=== PATIENT | female | born 1960 | race Caucasian/White ===

== ENCOUNTER 2020-04-08 07:15 | Outpatient (CLI) | payer OTHER, SELFPAY ==
--- NOTE | ~2020-04-08 | US_ITS ---
US abdomen complete EXAMINATION: US Abdomen Complete INDICATION: Abdomen pain PROCEDURE: Realtime High Resolution abdomen ultrasound. COMPARISON: IVP dated 08/24/2006 FINDINGS: Gallbladder within normal limits. No gallstones, pericholecystic fluid, gallbladder wall t hickening or biliary dilatation. Common bile duct measures 3.5 mm. Liver echotexture within normal limits without focal mass. Pancreas within normal limits. Pancreati c tail is obscured by bowel gas. Spleen is unremarkeable. Renal echotexture is within normal limits bilaterally without hydronephrosis, contour deforming mass or renal stone. Right kidney measures 10.6 cm. Left kidney measures 9.9 cm. Visualized aspects of the aorta and IVC are within normal limits. Portal vein is patent. No sonograph ic Garcia's sign indicated by the technologist. IMPRESSION: 1: Normal abdominal ultrasound. Reviewed, dictated and finalized at location A.
== END 2020-04-08 07:16 | disposition home or self-care (01) ==
PROVIDERS: PCP Internal Medicine; Visit Provider Internal Medicine
DX: R10.9 Unspecified abdominal pain (principal)
CPT/HCPCS: 76700

== ENCOUNTER → 2020-11-05 08:43 | Outpatient (CLI) | payer OTHER, SELFPAY ==
[2020-11-05 18:27] LABS: SARS-CoV-2 RNA PCR Negative
== END ==
PROVIDERS: PCP Internal Medicine; Visit Provider Internal Medicine
DX: Z20.822 Contact with and (suspected) exposure to COVID-19 (principal); R09.89 Other specified symptoms and signs involving the circulatory and respiratory systems
CPT/HCPCS: C9803; U0003; U0005

== ENCOUNTER 2022-11-28 08:07 | Observation (INO) | payer OTHER, SELFPAY ==
[2022-11-28] VITALS (17 sets, daily range): BP systolic 133–196; BP diastolic 59–112; PULSE 62–75; RESP 14–24; TEMP 36.2; O2SAT 94–100; BMI 35.2
--- NOTE | 2022-11-28 | ECHO_ITS ---
Patient Info Name: Amaya Rodriguez Age: 62 years : 1960 Gender: Female Ht: 66 in Wt: 218 lbs BSA: 2.19 m2 HR: 97 bpm BP: 133 / 80 mmHg Heart Rhythm: Sinus Rhythm Technical Quality: Fair Exam Date: 11/28/2022 1:50 PM Exam Location: [facility] Pulmonary Patient Status: Outpatient Admit Date: 11/28/2022 Staff Ordering Physician: Angel Stevens DO Brand Director: Delmi Diaz RDCS Attending Provider: Guanaco Yañez MD Referring Physician: Rodney WELLS; Exam Type: CA echo doppler color flow Study Info Indications R07.9 - Chest pain, unspecified Complete two-dimensional, color flow and Doppler transthoracic echocardiogram is performed. Summary 1. Complete two-dimensional, color flow and Doppler transthoracic echocardiogram is performed. 2. Left ventricular chamber dimension is normal. 3. Left ventricular systolic function is normal, estimated at 60-65%. 4. There is mildly increased left ventricular wall thickness. 5. The left ventricular diastolic function is grade I diastolic dysfunction. 6. E/e' 21 is elevated. 7. Left atrial chamber dimension is moderately enlarged. 8. There is mild aortic valve sclerosis. 9. The mitral valve has moderately calcified annulus. 10. There is trace tricuspid valve regurgitation. 11. No pulmonary hypertension, estimated pulmonary arterial systolic pressure is 26 mmHg. Left Ventricle E/e' 21 is elevated. Left ventricular chamber dimension is normal. Left ventricular systolic function is normal, estimated at 60-65%. There is mildly increased left ventricular wall thickness. The left ventricular diastolic function is grade I diastolic dysfunction. Right Ventricle Right ventricular systolic function is normal and with normal TAPSE 2.5 cm. Right ventricular chamber dimension is normal. Left Atria Left atrial chamber dimension is moderately enlarged. Right Atria Right atrial chamber dimension is normal. Aortic Valve The aortic valve is trileaflet. There is mild aortic valve sclerosis. There is no aortic valve stenosis. There is no aortic valve regurgitation. Pulmonic Valve There is no pulmonic regurgitation. Mitral Valve The mitral valve has moderately calcified annulus. There is no mitral valve stenosis. There is no mitral valve regurgitation. Tricuspid Valve There is trace tricuspid valve regurgitation. No pulmonary hypertension, estimated pulmonary arterial systolic pressure is 26 mmHg. Pericardium/Pleural There is no pericardial effusion. Inferior Vena Cava Normal inferior vena cava with >50% collapse upon inspiration consistent with normal right atrial pressure, 5 mmHg. Aorta The aortic root size at the sinus of Valsalva is normal. Left Ventricular Outflow Tract Name Value Normal LVOT 2D LVOT Diameter 2.0 cm LVOT Doppler LVOT Peak Gradient 5 mmHg LVOT Mean Gradient 3 mmHg LVOT VTI 27 cm LVOT VTI/AV VTI Ratio 0.7 LVOT Stroke Volume 84 ml LVOT CO
--- NOTE | ~2022-11-28 | XR_ITS ---
EXAMINATION: XR chest 2V DATE: 11/28/2022 08:45 INDICATION: Chest pain. TECHNIQUE: Frontal and lateral views of the chest were obtained. COMPARISON: None. FINDINGS: There is mild atelectasis in the lower lung zones. No pleural effusion or pneumothorax. The heart size is normal. IMPRESSION: 1. Mild atelectasis in the lower lung zones. Reviewed, dictated and finalized at location A. [facility]
--- NOTE | 2022-11-28 08:25 | ED.GENADULT ---
HPI - General Adult General Chief complaint: Chest Pain Stated complaint: CHEST PAIN Time Seen by Provider: 11/28/22 08:23 History of Present Illness HPI narrative: 62-year-old female with history of hypertension, high cholesterol and hyperglycemia presenting the emergency department for evaluation of chest pain. Patient states yesterday from 5 AM until 5 PM she had a substernal chest pain that radiated to her back. Patient states that nothing seems to make the pain better or worse. Patient states the pain was constant for the 12 hours yesterday. Patient reports after getting home from work that the pain resolved. Patient initially thought that the pain may have just been back pain due to her job of standing all day. When patient woke up this morning she had no additional pain but during the course of her morning after arriving to work she had onset of a chest pressure chest tightness. Patient states this is different than the pain she was having yesterday. Patient discussed this with her son-in-law and he advised her to present to the emergency department for evaluation. Reviewed with her medications for her high cholesterol. Patient states that she was attempting to do a stress test at [facility] on Thursday but was unable to complete the test. She has not had any additional testing rescheduled. Related Data Home Medications Medication Instructions Recorded Confirmed atorvastatin 20 mg tablet (Lipitor) 20 mg PO DAILY 11/28/22 11/28/22 loperamide 2 mg capsule 2 mg PO DAILY 11/28/22 11/28/22 omeprazole 20 mg tablet,delayed 20 mg PO DAILY 11/28/22 11/28/22 release Allergies Allergy/AdvReac Type Severity Reaction Status Date / Time No Known Drug Allergies Allergy Unknown Unknown Verified 04/15/21 16:12 Review of Systems Review of Systems: All systems reviewed & are unremarkable except as noted in HPI and below PMFSH Past Medical History Medical History (Updated 11/28/22 @ 19:29 by Pastor Llanes MD) Depression with anxiety Essential (primary) hypertension Other hyperlipidemia Surgical History Surgical History (Updated 11/28/22 @ 16:32 by Amaya Barnard NP) H/O: hysterectomy History of tonsillectomy and adenoidectomy S/P ORIF (open reduction internal fixation) fracture Family History Family History Sibling Cerebrovascular accident Colon cancer Father Patient's father is Mother Colon cancer Social History Social History (Updated 11/28/22 @ 16:33 by Amaya Barnard NP) Social History: the patient is and has 1 daughter. 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 Code status full code Smoking status: Never smoker Second hand tobacco smoke exposure: No Alcohol intake: current Lack of Transportation: No Lack of Food: Never True Current Housing: I Have Housing Concerned About Future Housing: No Difficulty Paying Gas/Electric Bills: No Difficulty Paying for Meds: No Currently Unemployed: No Education: Associate Degree Difficulty w/ Childcare or Family Care: No Spiritual care concerns: No Exam Narrative: APPEARANCE: Well appearing, no pain, no distress, well-nourished. HEAD: normocephalic, atraumatic. EYES: PERRLA/EOMI, conjunctivae clear. NOSE: Normal no drainage NECK: Supple. No adenopathy, no masses. RESPIRATORY: Airway patent, respirations nonlabored. Clear to auscultation bilaterally, no rales, rhonchi, wheezing. CARDIOVASCULAR: Regular rate and rhythm without murmurs rubs or gallops. ABDOMINAL: Soft, nontender, nondistended, normal bowel sounds MUSCULOSKELETAL: Moves all extremities. Strength/ROM intact, No edema, No calf tenderness. NEURO: Alert. Cranial nerves II through XII intact. SKIN: Warm, dry. Normal Color Course Course Emergency Course: 62-year-old female presenting with persistent chest pain. Patient was treated with aspir
[2022-11-28 08:35] LABS: Basophils Absolute Auto 0.1 K/mm3 (0.0-0.1); Basophils Percent Auto 0.8 % (0.2-1.2); Eosinophils Absolute Auto 0.2 K/mm3 (0-0.3); Eosinophils Percent Auto 3.4 % (0-4.4); Hematocrit 40.7 % (37.0-47.0); Hemoglobin 13.4 g/dL (12.0-15.0); Immature Granulocyte Absolute 0.03 K/mm3 (0.00-0.031); Immature Granulocyte Percent A 0.5 % (0-0.5); Lymphocytes Absolute Auto 1.65 K/mm3 (0.9-3.2); Lymphocytes Percent Auto 27.8 % (18.3-44.2); Mean Corpuscular HGB Conc 32.9 g/dl (32-36); Mean Corpuscular Hemoglobin 30.1 pg (26-34); Mean Corpuscular Volume 91.5 fl (80-100); Mean Platelet Volume 9.7 fl (7.4-10.4); Monocytes Absolute Auto 0.5 K/mm3 (0.1-0.6); Monocytes Percent Auto 8.4 % (2.6-8.5); Neutrophils Absolute Auto 3.5 K/mm3 (1.3-6.7); Neutrophils Percent Auto 59.1 % (45.5-73.1); Platelet Count Result 340 k/mm3 (150-375); Red Blood Count 4.45 M/mm3 (4.2-5.4); Red Cell Distribution Width 12.4 % (11.5-14.5); White Blood Count 5.9 K/mm3 (4.5-10.0)
[2022-11-28] MEDS: ASPIRIN 81 MG CHEWABLE TABLET 243 MG PO (08:35)
[2022-11-28] MEDS: NITROGLYCERIN SL 0.4 MG TABLET SUBLINGUAL (08:36)
[2022-11-28 08:50] LABS: Alanine Aminotransferase 25 U/L (6-35); Albumin Level 4.3 g/dL (3.5-5.1); Alkaline Phosphatase 83 U/L (38-126); Anion Gap 7 mmol/L (8-16); Aspartate Amino Transferase 26 U/L (14-36); Bilirubin,Total 0.7 mg/dL (0.2-1.3); Blood Urea Nitrogen 18 mg/dL (7-17); Calcium 8.7 mg/dL (8.4-10.2); Carbon Dioxide 27 mmol/L (22-30); Chloride 101 mmol/L (98-107); Estimated CRCL calculation 96 ml/min; Estimated Glomerular Filt Rate > 60; Glucose 108 mg/dL (65-110); Potassium 4.4 mmol/L (3.4-5.0); Sodium 135 mmol/L (137-145)
[2022-11-28 09:02] LABS: NT Pro B Type Natriuretic Pept 139 pg/mL (19.9-100); Troponin I < 0.012 ng/mL (0.000-0.034)
[2022-11-28 09:04] LABS: Prothrombin Time 13.1 Seconds (11.1-14.7)
[2022-11-28 09:06] LABS: Partial Thromboplastin Time 24.4 SECONDS (22.3-36.8)
--- NOTE | 2022-11-28 10:58 | PM.CNCAR ---
Assessment and Plan Assessment and plan (1) Chest pain: Code(s): R07.9 - Chest pain, unspecified Status: Acute Assessment and Plan: Thus far EKG and 1st troponin are unremarkable. Obtain stress echo report from [place] done on 11/26/22. If stress echo is abnormal, then consider left heart cath. If normal, then consider other causes of chest pains. Trend troponin to r/o OH. (2) Essential (primary) hypertension: Code(s): I10 - Essential (primary) hypertension Status: Acute Assessment and Plan: Stable. (3) Other hyperlipidemia: Code(s): E78.49 - Other hyperlipidemia Status: Acute Assessment and Plan: On statin. History of Present Illness History of Present Illness Consult date/time: 11/28/22 10:58 Reason For Visit: Chest Pain Narrative: 62 yr old woman presents to ER with chest pain. She has a history of hypertension, dyslipidemia, family history of father with OH age 42. Reports yesterday she had 12 hours of resting chest pain and then resolved. She woke up this morning with some more chest pressure so she came in to ER. She did get NTG SL and cp resolved. She can normally walk several blocks though she has not tried that in awhile. She had stress echo at [place] 2 days ago but does not know results. Denies orthopnea, PND, edema, dizziness, palpitations. Review of Systems Review of Systems: All systems reviewed & are unremarkable except as noted in HPI and below Cardiovascular: Cardiovascular: Reports as per HPI, Reports chest pain and Denies irregular heart rhythm Respiratory: Respiratory: Reports as per HPI and Denies dyspnea Gastrointestinal: Gastrointestinal: Reports as per HPI and Denies abdominal pain Genitourinary: Genitourinary: Reports as per HPI and Denies dysuria Musculoskeletal: Musculoskeletal: Reports as per HPI and Reports back pain Neurologic: Reports as per HPI, Denies dizziness and Denies syncope [facility] Family History Family History Sibling Cerebrovascular accident Father Patient's father is Social History Social History Smoking status: Never smoker Second hand tobacco smoke exposure: No Alcohol intake: current Meds Home Medications and Allergies Home Medications Medication Instructions Recorded Confirmed Type oseltamivir 75 mg capsule (Tamiflu) 75 mg PO BID #10 caps 11/03/20 Rx paroxetine HCl 20 mg tablet 20 mg PO DAILY #90 tabs 05/27/21 Rx lisinopril 10 mg tablet 10 mg PO DAILY #90 tabs 09/03/21 Rx Allergies Allergy/AdvReac Type Severity Reaction Status Date / Time No Known Drug Allergies Allergy Unknown Unknown Verified 04/15/21 16:12 Vital Signs Vital Signs - 24 hr 11/28/22 08:11 11/28/22 08:16 Pulse Rate 64 67 Respiratory Rate 16 Blood Pressure 192/103 H Pulse Oximetry 99 Oxygen Delivery Room Air Exam Const: General: cooperative, healthy appearing and comfortable Resp: Auscultation: clear to auscultation bilaterally, no crackles, no rales, no rhonchi and no wheezes Cardio: Rate: regular rate Rhythm: regular rhythm Heart sounds: no murmurs Peripheral pulses: dorsalis pedis present GI: GI Palp: No abdominal tenderness and Yes Soft to palpation Neuro: General: oriented to person, oriented to place and oriented to time Extrem: Right lower extremity: no edema Left lower extremity: no edema Results Labs and Meds 11/28/22 08:27 11/28/22 08:27 Lab results: Cardiac Enzymes 11/28/22 Range/Units 08:27 AST 26 (14-36) U/L Troponin I < 0.012 (0.000-0.034) ng/mL Coagulation 11/28/22 Range/Units 08:27 PT 13.1 (11.1-14.7) Seconds APTT 24.4 (22.3-36.8) SECONDS CBC 11/28/22 Range/Units 08:27 WBC 5.9 (4.5-10.0) K/mm3 RBC 4.45 (4.2-5.4) M/mm3 Hgb 13.4 (12.0-15.0) g/dL Hct 40.7 (
[2022-11-28 12:12] LABS: Troponin I < 0.012 ng/mL (0.000-0.034)
--- NOTE | 2022-11-28 12:35 | ADMGEN ---
This patient, Amaya Rodriguez, was admitted to IMU Room 203-01. Patient/family oriented to hospital policies and general routines including ID bracelet, bed and alarms, visiting hours, pain management, procedures, bathroom and other care routines, personal items, smoking policy, room service/diet, and visiting hours. Information on how to activate the Rapid Response Team has been discussed. Patient/Family are encouraged to report perceived risks to care and to ask questions if they do not understand what they are told or what they should do.
[2022-11-28] MEDS: SODIUM CHLORIDE 0.9% IV 1,000 ML 100 ML IV CONT (13:07)
--- NOTE | 2022-11-28 13:23 | PM.IMHP ---
H&P: HPI History of Present Illness Date/Time: 11/28/22 13:23 short-stay summary Chief Complaint: chest pain Narrative: this is a 62-year-old female patient with a history of hypertension and hyperlipidemia. The patient has had a stress test at home or hospital proximally 1 week ago. The patient has not had any previous cardiac events. The patient stated that her pain started yesterday around 5:00 a.m. and continue to to 5:00 p.m. when her substernal chest pain subsided. The patient had constant pain on and off for 12 hour since yesterday. The pain subsided at 5:00 p.m. and she was able to rest. The patient woke up again this morning and had no additional pain but during the course of the morning after arriving to work she onset of chest pressure /chest tightness. Her son-in-law encouraged her to come to [facility]. The patient did have a stress test at [facility] on Thursday but was unable to complete the test. Patient's troponin levels are negative. Chest x-ray was read by Radiology as mild atelectasis in the lower lung zones. Sodium is 135 BUN 18 creatinine 0.6. BNP is 139. the patient was given aspirin and nitro in the emergency room. The patient currently does not have any chest discomfort. Dr. Stevens was consulted and has seen the patient. The patient was receiving an echo when I entered the room. Her troponins were negative x2. The patient stated that she is wanting to go home. According to the nurse Dr. Stevens was notified and he stated that she could start Imdur and be discharged to home and to follow-up in 1 week. Patient may schedule an outpatient cardiac catheterization at that time. This is a short-stay summary. The patient was initially admitted for observation status on the date of service of 11/28/2022. Review of Systems Review of Systems: See HPI All systems reviewed & are unremarkable except as noted in HPI and below Constitutional: Constitutional: Reports as per HPI and Reports no additional constitutional complaints Eyes: Eyes: Reports as per HPI and Reports no additional eye complaints ENT: Reports system reviewed and no additional complaints, except as documented and Reports Normal hearing present Cardiovascular: Cardiovascular: Reports no additional cardiovascular complaints Respiratory: Respiratory: Reports no additional respiratory complaints and Reports no additional respiratory complaints Gastrointestinal: Gastrointestinal: Reports as per HPI and Reports no additional gastrointestinal complaints Musculoskeletal: Musculoskeletal: Reports no additional musculoskeletal complaints Integumentary/Breasts: Skin/Breast: Reports system reviewed and no additional complaints, except as docu and Reports as per HPI Neurologic: Reports system reviewed and no additional complaints, except as documented, Reports as per HPI and Reports Normal hearing present Psychiatric: Psychiatric: Reports no additional psychiatric complaints and Reports as per HPI Endocrine: Endocrine: Reports no additional endocrine complaints Hematologic/Lymphatic: Hematologic/Lymphatic: Reports no additional hematologic/lymphatic complaints Allergic/Immunologic: Allergic/Immunologic: Reports no additional allergic/immunologic complaints [facility] Past Medical History Medical History (Updated 11/28/22 @ 16:32 by Amaya Barnard NP) Depression with anxiety Essential (primary) hypertension Other hyperlipidemia Surgical History Surgical History (Updated 11/28/22 @ 16:32 by Amyaa Barnard NP) H/O: hysterectomy History of tonsillectomy and adenoidectomy S/P ORIF (open reduction internal fixation) fracture Family History Family History Sibling Cerebrovascular accident Colon cancer Father Patient's father is Mother Colon cancer Social History Social History (Updated 11/28/22 @ 16:33 by Amaya Barnard NP) Social History: t
--- NOTE | 2022-11-28 13:24 | ECG_ITS ---
Measurements Intervals [place] Rate: 64 P: 35 [place]: 169 QRS: 3 QRSD: 90 T: 4 QT: 422 QTc: 438 Interpretive Statements SINUS RHYTHM CONSIDER INFERIOR INFARCT, AGE INDETERMINATE BORDERLINE T WAVE ABNORMALITY- ANTERIOR LEADS ABNORMAL ECG NO PREVIOUS ECG AVAILABLE FOR COMPARISON Electronically Signed On 11-28-2022 16:47:57 CAR WORKER HELPER by Angel Stevens D.O.
--- NOTE | 2022-11-28 17:57 | PC.NURSE ---
Reviewed discharge paperwork with patient and patient family. All questions were answered. Peripheral access removed. escorted patient out via wheelchair.
== END 2022-11-28 17:40 | disposition home or self-care (01) ==
LOC: ANHED 08:30 → ANHIMU 10:58
PROVIDERS: Admitting Provider Family Medicine; Emergency Provider Emergency Medicine; PCP Hospitalist; Visit Provider Family Medicine
DX: R07.9 Chest pain, unspecified (principal); I11.9 Hypertensive heart disease without heart failure; E78.49 Other hyperlipidemia; F41.8 Other specified anxiety disorders; K21.9 Gastro-esophageal reflux disease without esophagitis; R94.31 Abnormal electrocardiogram [ECG] [EKG]; R73.9 Hyperglycemia, unspecified; M54.9 Dorsalgia, unspecified; F10.90 Alcohol use, unspecified, uncomplicated; J98.11 Atelectasis; I34.81 Nonrheumatic mitral (valve) annulus calcification; I35.0 Nonrheumatic aortic (valve) stenosis; Z79.899 Other long term (current) drug therapy
CPT/HCPCS: 36415; 71046; 80053; 83880; 84484; 85025; 85610; 85730; 93005; 93306; 99285; A9270; G0378; J7030

== ENCOUNTER 2022-12-12 01:44 | Day surgery (SDC) | payer OTHER, SELFPAY ==
[2022-12-11 14:22] VITALS: BMI 36.3
[2022-12-12] VITALS (16 sets, daily range): BP systolic 109–159; BP diastolic 54–102; PULSE 54–62; RESP 12–21; TEMP 36.1–36.3; O2SAT 94–99; BMI 36.3
[2022-12-12 09:04] LABS: Basophils Percent Auto 0.5 % (0.2-1.2); Eosinophils Absolute Auto 0.2 K/mm3 (0-0.3); Eosinophils Percent Auto 2.1 % (0-4.4); Hemoglobin 12.8 g/dL (12.0-15.0); Immature Granulocyte Absolute 0.03 K/mm3 (0.00-0.031); Immature Granulocyte Percent A 0.3 % (0-0.5); Lymphocytes Absolute Auto 1.84 K/mm3 (0.9-3.2); Lymphocytes Percent Auto 21.2 % (18.3-44.2); Mean Corpuscular HGB Conc 32.8 g/dl (32-36); Mean Corpuscular Hemoglobin 31.1 pg (26-34); Mean Corpuscular Volume 94.7 fl (80-100); Mean Platelet Volume 10.2 fl (7.4-10.4); Monocytes Absolute Auto 0.6 K/mm3 (0.1-0.6); Monocytes Percent Auto 6.8 % (2.6-8.5); Neutrophils Percent Auto 69.1 % (45.5-73.1); Platelet Count Result 309 k/mm3 (150-375); Red Blood Count 4.12 M/mm3 (4.2-5.4); Red Cell Distribution Width 12.8 % (11.5-14.5); White Blood Count 8.7 K/mm3 (4.5-10.0)
[2022-12-12 09:42] LABS: Anion Gap 6 mmol/L (8-16); Blood Urea Nitrogen 23 mg/dL (7-17); Calcium 8.7 mg/dL (8.4-10.2); Carbon Dioxide 28 mmol/L (22-30); Chloride 102 mmol/L (98-107); Estimated CRCL calculation 67 ml/min; Estimated Glomerular Filt Rate > 60; Glucose 111 mg/dL (65-110); Potassium 4.2 mmol/L (3.4-5.0); Sodium 136 mmol/L (137-145)
--- NOTE | 2022-12-12 10:15 | WPDMODSED ---
Moderate Sedation Note-Pt Data Patient Data Diagnosis: chest pain abnormal stress test Present Complaint: intermittent chest pain/non exertional Procedure to be performed/Plan: left heart catheterization Allergies Allergy/AdvReac Type Severity Reaction Status Date / Time No Known Drug Allergies Allergy Unknown Unknown Verified 12/12/22 08:46 Home Medications Medication Instructions Recorded Confirmed Type paroxetine HCl 20 mg tablet 20 mg PO DAILY #90 tabs 05/27/21 12/11/22 Rx lisinopril 10 mg tablet 10 mg PO DAILY #90 tabs 09/03/21 12/11/22 Rx aspirin 81 mg chewable tablet 81 mg PO DAILY@0800 #30 tabs 11/28/22 12/11/22 Rx (Children's Aspirin) atorvastatin 20 mg tablet (Lipitor) 20 mg PO DAILY 11/28/22 12/11/22 History isosorbide mononitrate 30 mg 30 mg PO QAM #30 tabs 11/28/22 12/11/22 Rx tablet,extended release 24 hr loperamide 2 mg capsule 2 mg PO DAILY PRN Diarrhea 11/28/22 12/11/22 History omeprazole 20 mg tablet,delayed 20 mg PO BID 11/28/22 12/11/22 History release metoprolol tartrate 25 mg tablet 25 mg PO BID 12/11/22 12/11/22 History Current Medications: Active Medications Sodium Chloride (Normal Saline Iv) 500 mls @ 100 mls/hr IV CONT .Q5H SURY Sedation/Anesthesia: No previous sedation/anesthesia problems (including family history). [facility] Past Medical History Medical History (Updated 11/28/22 @ 19:29 by Pastor Llanes MD) Depression with anxiety Essential (primary) hypertension Other hyperlipidemia Surgical History Surgical History (Updated 11/28/22 @ 16:32 by Amaya Barnard NP) H/O: hysterectomy History of tonsillectomy and adenoidectomy S/P ORIF (open reduction internal fixation) fracture Family History Family History Sibling Cerebrovascular accident Colon cancer Father Patient's father is Mother Colon cancer Social History Social History (Updated 11/28/22 @ 16:33 by Amaya Barnard NP) Social History: the patient is and has 1 daughter. 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 Code status full code Smoking status: Never smoker Second hand tobacco smoke exposure: No Alcohol intake: current Drinks per week: 20 Substance use: never Substance use type: does not use Lack of Transportation: No Lack of Food: Never True Current Housing: I Have Housing Concerned About Future Housing: No Difficulty Paying Gas/Electric Bills: No Difficulty Paying for Meds: No Currently Unemployed: No Education: Associate Degree Difficulty w/ Childcare or Family Care: No Living arrangements: with family Spiritual care concerns: No Mod Sed Physical Exam Physical Exam Pre Procedural Exam: Normal: Neck, Throat, Airway, Lungs, Heart Size, Heart Rate, Heart Rhythm, Neuro Exam and Extremities and Variation: Appearance ( for overweight white female no apparent distress) Hours since solid foods: 12 Hours since liquid intake: 12 Mallampati Classification: class III Internal Medicine - PN: Obj Da Vital Signs Vital Signs: Vital Signs - 24 hr 12/12/22 08:48 Temperature 36.1 C L Pulse Rate 59 L Respiratory Rate 12 Blood Pressure 159/83 H Pulse Oximetry 99 Oxygen Delivery Room Air Meds/Results Medications: Active Medications Generic Name Dose Route Start Last Admin Trade Name Freq PRN Reason Stop Dose Admin Sodium Chloride 500 mls @ 100 mls/hr 12/12/22 09:00 Normal Saline Iv IV CONT .Q5H SURY Labs 12/12/22 08:46 12/12/22 08:20 Labs: Laboratory Results - last 24 hr 12/12/22 12/12/22 08:20 08:46 WBC 8.7 RBC 4.12 L Hgb 12.8 Hct 39.0 MCV 94.7 MCH 31.1 MCHC 32.8 RDW 12.8 Plt Count 309 MPV 10.2 Immature Gran % (Auto) 0.3 Neut % (Auto) 69.1 Lymph % (Auto) 21.2 [place] % (Auto) 6.8 Eos % (Auto) 2.1 Baso % (Auto) 0.5 Lymph # (
--- NOTE | 2022-12-12 11:02 | WPDCARDPROC ---
Cardiac Cath Procedure Note Date of procedure:: 12/12/22 Performing physician:: Jason Ferraro MD Indication:: intermittent nonexertional chest pain mildly abnormal stress test Brief clinical history:: this is a 62-year-old woman with hypertension and dyslipidemia does not have prior history of coronary disease she has been experiencing intermittent nonexertional chest pain for approximately 2 months. Exercise nuclear stress test was modestly abnormal for apical ischemia. Procedure Procedure performed:: Coronary angiogram left ventriculogram Sedation/Medication given:: fentanyl 50 mg Versed 2 mg case start time 10:42 a.m. case end time 10:57 a.m. sedation provided by Digna Prado RN, trained observer Access site:: right femoral artery Estimated blood loss:: 20 cc Procedure note:: patient was brought to the cardiac catheterization lab in the postabsorptive state where the right femoral triangle was prepared and draped in the usual fashion. Anesthesia was provided with 1% lidocaine infiltrated locally. Using modified Seldinger technique a 5 Australian sheath was placed into the right femoral artery after this left heart catheterization was carried out I used a 5 Australian angled pigtail catheter to measure less demand projection. Following this I used a 5 Australian FL 3.5 catheter to engage and inject the left coronary. An FL4 catheter was unable to satisfactorily engage the left the left main. After this a 5 Australian JR4 catheter was used to engage right coronary artery. The cineangiograms were then reviewed and the case was terminated. I performed angiogram of the femoral artery through the sheath at which time I elected to have the sheath removed with direct manual compression to the puncture was in the SFA. Procedure was well tolerated and uncomplicated she had no sign of groin hematoma upon leaving the cardiac catheterization lab. Findings:: Hemodynamics: Central aortic pressure 166/70 left ventricle was 166/10 end-diastolic 20. No gradient on pullback across the aortic Valve. Left ventricle: The LV is normal in size all segments contract appropriately the global ejection fraction is 65-70% by visual estimation. There were no regional wall motion abnormalities. The left main coronary artery is widely patent the left anterior descending is a large caliber vessel extending down to around the apex it is smooth and angiographically normal throughout its course circumflex is a large caliber vessel giving rise to the marginal branches. The circumflex is also and angiographically normal. Right coronary artery is large in caliber and dominant to the posterior circulation it is also smooth and angiographically normal. Conclusion:: 1. Right coronary dominant circulation with no evidence of coronary disease 2. normal left ventricular systolic function Jason Garcia MD FACC
--- NOTE | 2022-12-12 16:19 | SUR.PHASEII ---
phase 2 completed @1610. Discharge instructions went over with patient and family member. Patient discharged home via personal vehicle driven by family member
== END 2022-12-12 16:20 | disposition home or self-care (01) ==
PROVIDERS: PCP Hospitalist; Visit Provider Specialist
PROC: 4A023N7 Measurement of Cardiac Sampling and Pressure, Left Heart, Percutaneous Approach (ICD-10-PCS; CPT 93452; principal; 2022-12-12 10:30)
DX: R94.39 Abnormal result of other cardiovascular function study (principal); R07.9 Chest pain, unspecified; I10 Essential (primary) hypertension; E78.49 Other hyperlipidemia; F41.8 Other specified anxiety disorders; Z79.82 Long term (current) use of aspirin
CPT/HCPCS: 36415; 80048; 85025; 93458; C1887; C1894; J1644; J2250; J3010; J7040